=== PATIENT | female | born 1945 ===

== ENCOUNTER 2020-07-24 05:18 | Day surgery (SDC) | payer OTHER ==
[~2020-07-24 05:18] MED LIST: COZAAR25 MG PO; GLIPIZIDE ER2.5 MG PO; METFORMIN HCL500 M3 PO; SIMVASTATIN10 MG PO; SYNTHROID75 MCG PO
[2020-07-24] MEDS ORDERED: TYLENOL325 MG PO (08:41)
== END 2020-07-24 16:25 | disposition home or self-care (01) ==
LOC: CIR.AMB 05:18
PROVIDERS: ATTEND Obstetrics & Gynecology Gynecology
DX: N84.0 Polyp of corpus uteri (principal); Z20.828 Contact with and (suspected) exposure to other viral communicable diseases